=== PATIENT | female | born 1945 | race Caucasian/White ===

== ENCOUNTER 2016-09-17 23:26 | Emergency (ER) | payer MEDICARE, BC ==
[~2016-09-17] VITALS: Ht 162.6 cm; Wt 72.0 kg
[~2016-09-17 23:26] MED LIST: LORT5TAB PO; PRIL20TA2 PO; VYTO10TA29 PO
[2016-09-17 23:29] VITALS: BP 215/86; PULSE 86; RESP 22; TEMP 98.2; O2SAT 97
--- NOTE | 2016-09-18 01:22 | PD ---
HPI Chief Complaint: Fall Time Seen by Provider: 01:15 Travel History International Travel<30 days: No Contact w/Intl Traveler<30days: No Traveled to known affect area: No History of Present Illness HPI 71-year-old female presents for evaluation of right wrist pain. This evening she had a mechanical fall on outstretched right hand. She now has right wrist pain, throbbing, constant, worse with movement. Denies any other injuries and she has no other complaints at this time. PFSH Past Medical History Hx Anticoagulant Therapy: Yes (ASA) Blood Disorders: No Cancer: No Cardiovascular Problems: Yes High Cholesterol: Yes Chemotherapy: No Endocrine: No Gastrointestinal Disorders: Yes GERD: Yes Genitourinary: No Immune Disorder: No Implanted Vascular Access Dvce: Yes Musculoskeletal: No Neurologic: No Psychiatric: No Reproductive: No Respiratory: No Immunizations Current: Yes Radiation Therapy: No ?: Not Menopausal: Yes Past Surgical History Abdominal Surgery: Yes (GB DRAIN INTACT) AICD: No Arteriovenous Shunt: No Cardiac Surgery: No Ear Surgery: No Endocrine Surgery: No Eye Surgery: No Genitourinary Surgery: No Gynecologic Surgery: No Insulin Pump: No Joint Replacement: No Neurologic Surgery: No Oral Surgery: Yes (DENTAL IMPLANTS) Pacemaker: No Thoracic Surgery: No Other Surgery: Yes (TONSILLECTOMY) Social History Alcohol Use: No Tobacco Use: No Substance Use: No Allergies-Medications (Allergen,Severity, Reaction): Coded Allergies: Morphine (Verified Adverse Reaction, Severe, DESATURATION, RESPIRATORY EVENT, 09/17/16) Reported Meds & Prescriptions Reported Meds & Active Scripts Active Zofran (Ondansetron HCl) 4 Mg Tab 4 Mg PO Q6HR PRN Lortab (Hydrocodone-Acetaminophen) 5-325 Mg Tab 1 Tab PO Q6H PRN Reported Citracal Calcium+D Slow Release (Kpzkqyb-Swzcdnhym-Effryey D) 600-40-500 Mg-Mg- Unit Tab 2 Tab PO DAILY Co Q 10 (Coenzyme Q10 (Ubidecarenone)) 60 Mg Cap Omeprazole 20 Mg Tab 20 Mg PO DAILY Aspirin Low Dose (Aspirin) 81 Mg Chew 81 Mg CHEW DAILY Vytorin (Ezetimibe-Simvastatin) 10-10 Mg Tab 1 Tab PO HS Review of Systems Except as stated in HPI: all other systems reviewed are Neg Physical Exam Narrative GENERAL: Well-developed well-nourished female in no acute distress SKIN: Warm and dry. Soft tissue swelling around the right wrist. Tender to palpation. HEAD: Atraumatic. Normocephalic. EYES: Pupils equal and round. No scleral icterus. No injection or drainage. ENT: No nasal bleeding or discharge. Mucous membranes pink and moist. NECK: Trachea midline. No JVD. CARDIOVASCULAR: Regular rate and rhythm. No murmur appreciated. RESPIRATORY: No accessory muscle use. Clear to auscultation. Breath sounds equal bilaterally. MUSCULOSKELETAL: Skin as noted above. Generalized tenderness to palpation to the right wrist. 2+ radial pulse. Capillary refill less than 2 seconds all digits right hand. NEUROLOGICAL: Awake and alert. No obvious cranial nerve deficits. Motor grossly within normal limits. Normal speech. Data Data Last Documented VS Vital Signs Date Time Temp Pulse Resp B/P Pulse Ox O2 Delivery O2 Flow Rate FiO2 09/18/16 04:00 82 16 134/63 98 Room Air 09/17/16 23:29 98.2 Orders Wrist, Complete ([id number]) (09/18/16 ) Ice/Cold Pack (09/18/16 01:19) Acetamin-Hydrocod 325-5 Mg ([place] 5-325 (09/18/16 01:30) Ondansetron Odt (Zofran Odt) (09/18/16 01:30) Clonidine (Catapres) (09/18/16 01:30) Lidocai-Epi 1%-1:100,000 Inj (Xylocaine- (09/18/16 02:45) Wrist, Limited (Ap&Lat) (09/18/16 ) Splint Or Brace Apply/Monitor (09/18/16 03:01) Fiberglass Sugartong Sp Ad Arm (09/18/16 ) Sling Cradle Arm (09/18/16 ) MDM Medical Decision Making Medical Screen Exam Complete: Yes Emergency Medical Condition: Yes Medical Record Reviewed: Yes Interpretation(s) Right wrist x-ray reveals distal radial fracture Postreduction x-ray CONCLUSION: Satisfactory reduction and cast material Differential Diagnosis Wrist fracture, sprain, dislocation, contusion Narrative Course 71-year-old female with right wrist pain after fall an outstretched hand. Upon initial examination she is hypertensive likely secondary to pain. The patient was given Lortab, clonidine. Wrist x-ray does reveal a mildly displaced and angulated Colles' fracture of the distal right radius. After verbal consent was obtained the right wrist was reduced utilizing a hematoma block for pain control. A sugar tong splint was applied. Postreduction x-ray reveals a well aligned distal radial fracture. The patient stable for discharge and outpatient follow-up with an orthopedist. Diagnosis Primary Impression: Wrist fracture, right Qualified Code: S62.101A - Wrist fracture, right, closed, initial encounter Referrals: Mateo Boss MD Additional Instructions: Follow-up with an orthopedist such as Dr. Boss in the next 5-7 days. Do not remove the splint. Ice several times a day 15 minutes at a time. Elevate as much as possible. Lortab for pain. Zofran for nausea. Return for any emergent medical conditions. Med/Other Pt SpecificInfo: Prescription(s) given Scripts Ondansetron (Zofran)4 Mg Tab4 Mg PO Q6HR PRN (NAUSEA OR VOMITING) #20 TAB Ref 0 Prov:Lindsay Mao MD 09/18/16 Hydrocodone-Acetaminophen (Lortab)5-325 Mg Tab1 Tab PO Q6H PRN (PAIN) #20 TAB Ref 0 Prov:Lindsay Mao MD 09/18/16 Disposition: 01 DISCHARGE HOME Condition: Stable Ford Tapia Sep 18, 2016 01:22
[2016-09-18] MEDS ORDERED: ONDANSETRON ODT 4 MG TAB PO ONE (01:30)
[2016-09-18] MEDS ORDERED: ACETAMINOPHEN/HYDROcodone 325 MG/5 MG TAB PO ONE (01:30)
[2016-09-18] MEDS ORDERED: cloNIDine HCL 0.1 MG TAB PO ONE (01:30)
[2016-09-18] MEDS ORDERED: CITRTAB16 PO (02:22)
[2016-09-18] MEDS ORDERED: VYTO10TA27 PO (02:22)
[2016-09-18] MEDS ORDERED: OMEP20TA PO (02:22)
[2016-09-18] MEDS ORDERED: ASPI81CH37 CHEW (02:22)
[2016-09-18] MEDS ORDERED: CO Q60CA (02:22)
[2016-09-18] MEDS ORDERED: CALC500T17 PO (02:22)
--- NOTE | 2016-09-18 02:44 | RADRPT ---
EXAM DATE/TIME: 09/18/2016 01:42 [facility] COMPARISON: No previous studies available for comparison. INDICATIONS : Right distal forearm pain post fall. MEDICAL HISTORY : None. SURGICAL HISTORY : None. ENCOUNTER: Initial ACUITY: 1 day PAIN SCORE: 10/10 LOCATION: Right wrist FINDINGS: There is a fracture of the distal radius, predominantly transverse width dorsal displacement and angu lation. The carpus is intact. The distal ulna is intact. Mild degenerative change in hand and wrist. CONCLUSION: Mildly displaced and angulated Colles' configuration fracture of the distal right radius Manny Peterson MD on September 18, 2016 at 2:42 Board Certified Radiologist. This report was verified electronically.
[2016-09-18] MEDS ORDERED: LIDOCAINE 1%/EPINEPHrine 1:100,000 SOLN 20 ML VIAL INFIL ONE (02:45)
[2016-09-18] MEDS ORDERED: HYDR-3533 PO (03:38)
[2016-09-18] MEDS ORDERED: ZOFR4TAB PO (03:38)
--- NOTE | 2016-09-18 03:45 | RADRPT ---
EXAM DATE/TIME: 09/18/2016 03:15 [facility] COMPARISON: No previous studies available for comparison. INDICATIONS : Post reduction of a right wrist fracture. MEDICAL HISTORY : None. SURGICAL HISTORY : None. ENCOUNTER: Subsequent ACUITY: 1 day PAIN SCORE: 10/10 LOCATION: Right wrist FINDINGS: A distal radial fracture has been casted with satisfactory reduction. CONCLUSION: Satisfactory reduction and cast material Manny Peterson MD on September 18, 2016 at 3:43 Board Certified Radiologist. This report was verified electronically.
[2016-09-18 04:00] VITALS: BP 134/63; PULSE 82; RESP 16; O2SAT 98
== END 2016-09-18 04:07 | disposition home or self-care (01) ==
LOC: NEPB 23:26
DX: S52.531A Colles' fracture of right radius, initial encounter for closed fracture (principal); W19.XXXA Unspecified fall, initial encounter; I15.8 Other secondary hypertension; E78.00 Pure hypercholesterolemia, unspecified; K21.9 Gastro-esophageal reflux disease without esophagitis
CPT/HCPCS: 25605; 73100; 73110